=== PATIENT | male | born 1995 | race African-American/Black ===

== ENCOUNTER 2020-09-05 08:13 | Emergency (ER) | payer OTHER, SELFPAY ==
--- NOTE | 2020-09-05 08:55 | ER ---
Nurse's Notes [facility] Name: Erick England Age: 24 yrs Sex: Male : 1995 Arrival Date: 09/05/2020 Time: 08:18 Bed 14 Private MD: Diagnosis: Headache;Atypical facial pain Presentation: 09/05 08:31 Chief complaint: Patient states: intermittent, sharp, throbbing L sided neck and head ss pain that began 2-3 months ago. Denies injury. Pt reports the pain is keeping him up at night. Feels different than a headach. Coronavirus screen: Client denies travel out of the [place] in the last 14 days. Ebola Screen: Patient denies exposure to infectious person. Patient denies travel to an Ebola-affected area in the 21 days before illness onset. Initial Sepsis Screen: Does the patient meet any 2 criteria? No. Patient's initial sepsis screen is negative. Does the patient have a suspected source of infection? No. Patient's initial sepsis screen is negative. Risk Assessment: Do you want to hurt yourself or someone else? Patient reports no desire to harm self or others. Onset of symptoms is unknown. 08:31 Method Of Arrival: Ambulatory ss 08:31 Acuity: JASON 4 ss Historical: - Allergies: 08:33 No Known Allergies; ss - Home Meds: 08:33 None [Active]; ss - PMHx: 08:33 None; ss - PSHx: 08:33 None; ss - Immunization history:: Adult Immunizations unknown. - Social history:: Smoking status: Patient reports the use of cigarette tobacco products, 1-2 cig/ day. - Family history:: not pertinent. - Hospitalizations: : No recent hospitalization is reported. Screenin:30 Abuse screen: Denies threats or abuse. Nutritional screening: On. Tuberculosis tw2 screening: No symptoms or risk factors identified. Fall Risk None identified. Assessment: 08:33 General: Appears in no apparent distress. comfortable, Behavior is calm, cooperative. ss Pain: Complains of pain in L side of neck and head Pain currently is 5 out of 10 on a pain scale. Quality of pain is described as sharp, throbbing, Is intermittent. Neuro: Level of Consciousness is awake, alert, obeys commands, Oriented to person, place, time, situation. Cardiovascular: Capillary refill < 3 seconds is brisk in bilateral fingers. Respiratory: Airway is patent Respiratory effort is even, unlabored, Respiratory pattern is regular, symmetrical. GI: No signs and/or symptoms were reported involving the gastrointestinal system. Patient currently denies abdominal pain, nausea. : No signs and/or symptoms were reported regarding the genitourinary system. EENT: Oral mucosa is moist. Throat is clear. Derm: Skin is intact, is healthy with good turgor, Skin is dry, Skin is pink, warm \T\ dry. normal. Musculoskeletal: No signs and/or symptoms reported regarding the musculoskeletal system. Circulation, motion, and sensation intact. Range of motion: intact in all extremities, Swelling absent. 08:34 Reassessment: Dr. Coleman at bedside. Vital Signs: 08:31 BP 122 / 69; Pulse 80; Resp 15; Temp 98.2(O); Pulse Ox 98% on R/A; Weight 68.04 kg; ss Height 6 ft. 0 in. (182.88 cm); Pain 5/10; 08:31 Body Mass Index 20.34 (68.04 kg, 182.88 cm) ED Course: 08:18 Patient arrived in ED. mr 08:26 Bed in low position. Call light in reach. Pulse ox on. NIBP on. tw2 08:28 Vivek Coleman MD is Attending Physician. rn 08:31 Meka Stafford, SHAKILA is Primary Nurse. 08:32 Triage completed. 08:33 Arm band placed on right wrist. 09:02 No provider procedures requiring assistance completed. Patient did not have IV access ss during this emergency room visit. Administered Medications: No medications were administered Outcome: 08:54 Discharge ordered by . rn 09:02 Discharged to home ambulatory. ss 09:02 Condition: good 09:02 Discharge instructions given to patient, Instructed on discharge instructions, follow up and referral plans. medication usage, Demonstrated understanding of instructions, follow-up care, medications, Prescriptions given X 1. 09:02 Patient left the ED. Signatures: Arelis Mcdowell Vivek Coleman MD MD rn Smirch, Shelby, RN RN Marilyn Burks RN RN tw2
--- NOTE | 2020-09-05 08:55 | EDPHYS ---
Physician Documentation [facility] Name: Erick England Age: 24 yrs Sex: Male : 1995 Arrival Date: 09/05/2020 Time: 08:18 Bed 14 Private MD: ED Physician Vivek Coleman HPI: 09/05 08:51 This 24 yrs old Black Male presents to ER via Ambulatory with complaints of Facial Pain.rn 08:51 Reports left sided facial and neck pain, for 2 months or so, intermittent, reports in rn and out of dentist for left sided dental problems, reports last few days pain keeping him up at night. No trauma. No neck stiffness. No focal neuro complaints. No fever. No difficulty swallowing. . 08:51 Onset: The symptoms/episode began/occurred 2 month(s) ago. Severity of symptoms: At rn their worst the symptoms were moderate in the emergency department the symptoms have improved. The patient has experienced similar episodes in the past. The patient has been recently seen by a physician:. Historical: - Allergies: 08:33 No Known Allergies; ss - Home Meds: 08:33 None [Active]; ss - PMHx: 08:33 None; ss - PSHx: 08:33 None; ss - Immunization history:: Adult Immunizations unknown. - Social history:: Smoking status: Patient reports the use of cigarette tobacco products, 1-2 cig/ day. - Family history:: not pertinent. - Hospitalizations: : No recent hospitalization is reported. ROS: 08:51 Constitutional: Negative for fever, chills, and weight loss, Eyes: Negative for injury, rn pain, redness, and discharge, ENT: + left facial and scalp pain, left neck pain Neck: Negative for injury, and swelling, Cardiovascular: Negative for chest pain, palpitations, and edema, Respiratory: Negative for shortness of breath, cough, wheezing, and pleuritic chest pain, Abdomen/GI: Negative for abdominal pain, nausea, vomiting, diarrhea, and constipation, MS/Extremity: Negative for injury and deformity, Skin: Negative for injury, rash, and discoloration, Neuro: Negative for weakness, numbness, tingling, and seizure. Exam: 08:51 Constitutional: This is a well developed, well nourished patient who is awake, alert, rn and in no acute distress. Head/Face: Normocephalic, atraumatic. Eyes: Pupils equal round and reactive to light, extra-ocular motions intact. Lids and lashes normal. Conjunctiva and sclera are non-icteric and not injected. Cornea within normal limits. Periorbital areas with no swelling, redness, or edema. Neck: Trachea midline, no thyromegaly or masses palpated, and no cervical lymphadenopathy. Supple, full range of motion without nuchal rigidity, or vertebral point tenderness. No Meningismus. Skin: Warm, dry with normal turgor. Normal color with no rashes, no lesions, and no evidence of cellulitis. Neuro: Awake and alert, GCS 15, oriented to person, place, time, and situation. Cranial nerves II-XII grossly intact. Motor strength 5/5 in all extremities. Sensory grossly intact. Cerebellar exam normal. Normal gait. Vital Signs: 08:31 BP 122 / 69; Pulse 80; Resp 15; Temp 98.2(O); Pulse Ox 98% on R/A; Weight 68.04 kg; ss Height 6 ft. 0 in. (182.88 cm); Pain 5/10; 08:31 Body Mass Index 20.34 (68.04 kg, 182.88 cm) ss MDM: 08:28 Patient medically screened. rn 08:51 Differential Diagnosis dental origin of pain, nerve pain, lymphadenitis. Data reviewed: rn vital signs, nurses notes, and as a result, I will discharge patient. Counseling: I had a detailed discussion with the patient and/or guardian regarding: the historical points, exam findings, and any diagnostic results supporting the discharge/admit diagnosis, the need for outpatient follow up, to return to the emergency department if symptoms worsen or persist or if there are any questions or concerns that arise at home. Special discussion: I discussed with the patient/guardian in detail that at this point there is no indication for admission to the hospital. It is understood, however, that if the symptoms persist or worsen the patient needs to return immediately for re-evaluation. Administered Medications: No medications were administered Disposition: 09/05/20 08:54 Discharged to Home. Impression: Headache, Atypical facial pain. - Condition is Stable. - Discharge Instructions: General Headache Without Cause, Pain Without a Known Cause, Neuropathic Pain. - Prescriptions for Clindamycin HCl 300 mg Oral Capsule - take 1 capsule by ORAL route every 6 hours for 10 days; 40 capsule. Medrol (Luis Manuel) 4 mg Oral Tablets, Dose Pack - take 1 tablet by ORAL route as directed - follow package instructions; 1 packet. - Medication Reconciliation Form, Thank You Letter, Antibiotic Education, Prescription Opioid Use form. - Follow up: Private Physician; When: As needed; Reason: Recheck today's complaints, Re-evaluation by your physician. - Problem is an ongoing problem. - Symptoms are unchanged. Signatures: Vivek Coleman MD MD rn Smirch, Shelby, RN RN ss Corrections: (The following items were deleted from the chart) 08:52 08:51 Reports left sided facial and neck pain, for . robby rn 09:02 08:54 09/05/2020 08:54 Discharged to Home. Impression: Headache; Atypical facial pain. ss Condition is Stable. Forms are Medication Reconciliation Form, Thank You Letter, Antibiotic Education, Prescription Opioid Use. Follow up: Private Physician; When: As needed; Reason: Recheck today's complaints, Re-evaluation by your physician. Problem is an ongoing problem. Symptoms are unchanged. rn
[2020-09-05 09:06] VITALS: BP 122/69; TEMP 98.2; O2SAT 98
== END 2020-09-05 09:02 | disposition home or self-care (01) ==
LOC: ER 08:13
DX: G50.1 Atypical facial pain (principal); R51.9 Headache, unspecified; F17.210 Nicotine dependence, cigarettes, uncomplicated
CPT/HCPCS: 99283